=== PATIENT | female | born 1980 | race Caucasian/White ===

== ENCOUNTER 2021-01-18 09:41 | Outpatient (REF) | payer BC, SELFPAY ==
--- NOTE | ~2021-01-18 | XR_ITS ---
EXAMINATION: XR HAND, RIGHT CLINICAL INFORMATION: Pain right thumb COMPARISON: None TECHNIQUE: PA, lateral, and oblique views of the right hand. FINDINGS: There is no fracture or dislocation. The bony mineralization is normal. There is no focal joint narrowing or erosive change. No periostitis. The ulnar variance is neutral. XR/XR hand RT min 3V IMPRESSION: Normal right hand.
== END 2021-01-18 09:42 | disposition home or self-care (01) ==
LOC: HO.HMGCX 09:41
PROVIDERS: Visit Provider Hospitalist
DX: M79.644 Pain in right finger(s) (principal)
CPT/HCPCS: 73130

== ENCOUNTER → 2021-02-01 09:09 | Outpatient (BNVA) | payer BC, SELFPAY | PROVIDERS: PCP Internal Medicine; Visit Provider Orthopaedic Surgery ==

== ENCOUNTER 2021-02-17 14:58 | Outpatient (REF) | payer BC, SELFPAY ==
--- NOTE | ~2021-02-17 | MR_ITS ---
EXAMINATION: MR HAND WITHOUT AND WITH CONTRAST, RIGHT CLINICAL INFORMATION: Right hand, thumb pain for 1 year. COMPARISON: X-ray 01/18/2021 TECHNIQUE: MRI in a high-field magnet without and with contrast. 10 mL Gadavist. Large obftu-aj-ecic study extending from the distal radius/ulna through the tip of the fingers. FINDINGS: Skin marker positioned adjacent to the 1st distal phalanx. Large shwez-fm-avlo study limiting evaluation. There is a T2 bright focus along the dorsal aspect of the mid to distal 1st distal phalanx measuring 3 x 2 x 4 mm. (Transverse, AP, length). This may be located in the region of the proximal nailbed. This is bright on T2, low on T1, and demonstrates enhancement. Underlying marrow signal appears maintained. Differential considerations are broad, including benign and malignant lesions such as glomus tumor, soft tissue chondroma, hemangioma, squamous cell carcinoma, melanoma. Further evaluation is needed. Recommend surgical consultation. No evidence of fracture. No significant edema or significant arthropathy is identified. Visualized tendons are intact. No tenosynovitis. MR/MR hand RT wo/w con IMPRESSION: Lesion in the region of the 1st distal phalanx, evaluation limited in this large xepmu-du-famo study. This lesion is located dorsally at the level of the mid to distal 1st distal phalanx, measuring 3 x 2 x 4 mm. Lesion is bright on T2, low on T1, enhancing on the postcontrast sequences. Imaging findings are nonspecific. Differential considerations are broad and amongst other etiologies include benign or malignant etiologies such as glomus tumor, soft tissue chondroma, hemangioma, malignant etiology such as squamous cell carcinoma or melanoma not excluded. Further evaluation is needed. Recommend surgical consultation.
== END 2021-02-17 14:59 | disposition home or self-care (01) ==
LOC: HO.MRI 14:58
PROVIDERS: Visit Provider Orthopaedic Surgery
DX: M79.644 Pain in right finger(s) (principal); L60.8 Other nail disorders
CPT/HCPCS: 73220; A9585

== ENCOUNTER → 2021-03-13 11:34 | Outpatient (BNVA) | payer BC, SELFPAY | PROVIDERS: PCP Internal Medicine; Visit Provider Orthopaedic Surgery ==

== ENCOUNTER 2021-04-11 07:10 | Day surgery (SDC) | payer BC, SELFPAY ==
--- NOTE | 2021-04-07 08:42 | HO.ANESPROP2 ---
Documented by User: Nayeli Alicja 04/07/21 08:43 HPI - Anesthesia Eval Consult details Narrative: 41yo F for Right Removal of Nail Plate and Thumb Mass with Nail Bed Repair PMFSH Active Problems Active Problems: All Active Problems (Updated 03/13/21 @ 16:50 by Kassandra Rooney MD) Pain of right thumb (Acute) Nail deformity (Acute) Mass of soft tissue of right upper extremity (Acute) Past Medical History Medical History Anxiety and depression Gestational diabetes HPV in female Overweight Family History Family History Father Unknown family medical history Mother HTN (hypertension) Brother No problems noted. Sister No problems noted. Son No problems noted. Son No problems noted. Surgical History Surgical History History of esophagogastroduodenoscopy (EGD) [place] teeth extracted Social History Social History Alcohol intake: current Alcohol intake frequency: holidays/special occasions only Patient Tobacco Use Status: Never used Tobacco Second Hand Smoke Exposure: No Use of substances other than those prescribed or required for medical reasons: No Are you DNR?: No Advance Directives: No Advance Directives Information Provided: Yes Advance Directives on File: No Recently lost weight without trying: No Nutrition Risks: No Nutritional Risk Current occupational status: employed Current occupation: Early intervention/rt handed Meds Allergies Allergy/AdvReac Type Severity Reaction Status Date / Time sulfamethoxazole Allergy Unknown Rash Verified 04/03/21 13:58 [From Bactrim] trimethoprim [From Bactrim] Allergy Unknown Rash Verified 04/03/21 13:58 Home Medications Medication Instructions Recorded Confirmed Last Taken Type flu vac qs 2019(4 yr up)CD(PF) ml IM 10/25/20 01/18/21 Unknown History Exam Exam Date and Time: April 07, 2021 0842 Assessment and Plan Assessment Anesthesia Assessment: Chart Reviewed Documented by User: Maxim Andrade MD 04/11/21 07:59 PMFSH Past Medical History Medical History Anxiety and depression Gestational diabetes HPV in female Overweight Family History Family History Father Unknown family medical history Mother HTN (hypertension) Brother No problems noted. Sister No problems noted. Son No problems noted. Son No problems noted. Surgical History Surgical History History of esophagogastroduodenoscopy (EGD) [place] teeth extracted Social History Social History Alcohol intake: current Alcohol intake frequency: holidays/special occasions only Patient Tobacco Use Status: Never used Tobacco Second Hand Smoke Exposure: No Use of substances other than those prescribed or required for medical reasons: No Are you DNR?: No Advance Directives: No Advance Directives Information Provided: Yes Advance Directives on File: No Recently lost weight without trying: No Nutrition Risks: No Nutritional Risk Current occupational status: employed Current occupation: Early intervention/rt handed Meds Allergies Allergy/AdvReac Type Severity Reaction Status Date / Time sulfamethoxazole Allergy Unknown Rash Verified 04/03/21 13:58 [From Bactrim] trimethoprim [From Bactrim] Allergy Unknown Rash Verified 04/03/21 13:58 Home Medications Medication Instructions Recorded Confirmed Last Taken Type flu vac qs 2019(4 yr up)CD(PF) ml IM 10/25/20 01/18/21 Unknown History Exam Airway Mallampati Class: I TM Dist: >3cm Neck ROM: Full Loose/Missing/Broken Teeth: No Assessment and Plan Assessment Anesthesia Assessment: Anesthesia Plan Discussed and Chart Reviewed Final Anesthetic Review NPO: Yes ASA Class: I Final Preanesthetic Review: No Changes in Pt Med Stat, Meds/Allgs Chart Reviewed, Consent Obtained/Reviewed and Anes Risks/Benef Reviewed Patient Risk: Low Procedure Risk: Low Anesthetic Plan Anesthetic Plan: GA Disposition: Standard PACU
[2021-04-11] VITALS (7 sets, daily range): BP systolic 106–126; BP diastolic 57–72; PULSE 85–91; RESP 16–18; TEMP 36.1–36.3; O2SAT 96–100; BMI 37.8
[2021-04-11] MEDS: Lactated Ringers 1,000 ML 100 ML IVCONT (07:34)
[2021-04-11] MEDS: ceFAZolin Sodium/Dextrose,Iso 2 GM/50 ML PIGGYBACK IV (08:16)
[2021-04-11 08:29] LABS: UPreg QC Valid YES; Urine Pregnancy NEGATIVE (NEGATIVE)
--- NOTE | 2021-04-11 09:02 | P.BOP_ITS ---
Brief Operative Note Date of Service: 04/11/21 Surgeon: Kassandra Rooney MD Was an Freight Team Associate used for this Procedure?: No
--- NOTE | 2021-04-11 09:02 | MHC.SHP ---
Pre-Procedural Eval Section A Date of Service: 04/11/21 Section B Chief Complaint: soft tissue disorders Allergies: Allergies Allergy/AdvReac Type Severity Reaction Status Date / Time sulfamethoxazole Allergy Unknown Rash Verified 04/03/21 13:58 [From Bactrim] trimethoprim [From Bactrim] Allergy Unknown Rash Verified 04/03/21 13:58 Plan I have reviewed the history and physical and performed a pertinent physical examination on my patient. No changes have occurred unless specified.
--- NOTE | 2021-04-11 09:02 | PM.OP ---
Brief Operative Note Date of Service: 04/11/21 Surgeon: Kassandra Rooney MD Was an Livestock Laborer used for this Procedure?: No
--- NOTE | 2021-04-11 09:03 | W.PM.OPN ---
Operative Note Operative Note Date of Service: 04/11/21 Narrative: Operative Note Narrative: Preop diagnosis: right thumb nail bed soft tissue mass Postop diagnosis: Same Procedure: 1. Removal of right thumb nail plate 2. excisional biopsy of right thumb nail bed mass with repair of nail bed Surgeon: Kassandra Rooney MD Anesthesia: Mac plus regional block Findings: A light menendez soft tissue mass measuring approximately 4-5 mm in diameter was removed from beneath the proximal ulnar nail bed of the right thumb and sent for histopathology Implants: none Tourniquet time: 20 minutes EBL: 5.0 ml Specimen: right thumb nail bed mass sent for histopathology Drains: None Complications: None Disposition: Brought to the recovery room in stable condition Plan: Follow-up in 10-14 days for wound check, and to check pathology anticipate removal of sutures about nail plate at 3 weeks postop Indications: The patient is 41 years old with a painful mass in the nail bed of the right thumb, most consistent with a glomus tumor. . The risks and benefits of operative treatment, including but not limited to risk of damage to blood vessels, nerves, tendons, infection, recurrence, persistent pain or numbness, incomplete resolution of preoperative symptoms, or need for further surgery were discussed with the patient and they wished to proceed with surgery. Procedure: Once consent was obtained patient was brought back to the operating suite and placed in the operating table in a supine position. Perioperative antibiotics and anesthesia was administered by the anesthesia team. A tourniquet was applied to the proximal aspect of the Right upper extremity and the limb was prepped and draped in a standard surgical fashion. The limb was elevated exsanguinated with Esmarch bandage and the tourniquet inflated to 250 mm of mercury for a total tourniquet time of 20 minutes. a [employer] elevator was used to elevate the nail plate from the underlying nail bed of the right thumb. The nail plate was freed from the eponychial fold, removed and placed on the back table in some Betadine. The nail plate was then cleaned up and trimmed. The soft tissue mass was visualized beneath the sterile and some of the germinal matrix of the ulnar aspect of the right thumb nail bed. I made a longitudinal incision over the mass using a 15. Blade. I then dissected down to the mass which was just beneath the nail bed. It was a light menendez in color rather spherical and measured about 4-5 mm in diameter. I then excised the soft tissue mass And placed on the back table to be sent for histopathology. No other masses were appreciated. The wound was then irrigated with normal saline and the nail bed was then repaired using some 6 0 absorbable gut suture. The nail plate was then position beneath the eponychial fold and secured there using some 5 0 Prolenesuture. At this point the tourniquet was deflated and hemostasis obtained with a brief period of local pressure . The wound was copiously irrigated with normal saline. A digital block was performed using some 0.25% plain Marcaine for postop pain control and a sterile dressing was applied. The patient appears to have tolerated the procedure well and with no complications. All digits were well vascularized conclusion of the case.
== END 2021-04-11 11:30 | disposition home or self-care (01) ==
PROVIDERS: Nurse Practitioner; PCP Internal Medicine; Visit Provider Orthopaedic Surgery
PROC: (CPT 26115; principal; 2021-04-11 08:30)
DX: M79.89 Other specified soft tissue disorders (principal); D21.11 Benign neoplasm of connective and other soft tissue of right upper limb, including shoulder
CPT/HCPCS: 26115; 11760; 81025; 88307; 88313; 88341; 88342; J0690; J1100; J2250; J2370; J2405; J3010

== ENCOUNTER → 2021-04-24 08:32 | Outpatient (BNVA) | payer BC, SELFPAY | PROVIDERS: Visit Provider Physician Assistant ==

== ENCOUNTER → 2021-04-27 14:45 | Outpatient (BNVA) | payer BC, SELFPAY | PROVIDERS: PCP Internal Medicine; Visit Provider Physician Assistant ==

== ENCOUNTER → 2021-05-12 13:20 | Outpatient (BNVA) | payer BC, SELFPAY | PROVIDERS: PCP Internal Medicine; Visit Provider Physician Assistant ==

== ENCOUNTER 2022-06-12 08:53 | Outpatient (REF) | payer BC, SELFPAY ==
[2022-06-12 11:23] LABS: MANUAL DIFF FLAG NO
[2022-06-12 11:38] LABS: Basophils Percent Auto 0.5 % (0-2); Eosinophils Absolute Auto 0.2 X10*3/uL (0.0-0.4); Eosinophils Percent Auto 1.8 % (0-4); Hematocrit 39.3 % (37.0-47.0); Hemoglobin 12.9 g/dl (12.0-16.0); Imm Gran Abs Auto 0.03 X10*3/uL (0.00-0.03); Imm Gran Pct Auto 0.4 % (0.0-0.4); Lymphocytes Absolute Auto 1.3 X10*3/uL (1.2-4.9); Lymphocytes Percent Auto 16.3 % (20-40); Mean Corpuscular HGB Conc 32.8 g/dl (31.0-35.0); Mean Corpuscular Hemoglobin 27.3 pg (27.0-33.0); Mean Corpuscular Volume 83.1 fL (80.0-98.0); Mean Platelet Volume 11.9 fL (9.4-12.3); Monocytes Absolute Auto 0.6 X10*3/uL (0.1-1.2); Monocytes Percent Auto 7.6 % (2-11); Neutrophils Percent Auto 73.4 % (45-73); Platelet Count 322 X10*3/uL (160-400); Red Blood Count 4.73 X10*6/uL (4.20-5.50); Red Cell Distribution Width 15.4 % (11.0-16.0); White Blood Count 8.2 X10*3/uL (4.8-10.8)
[2022-06-12 12:01] LABS: Alanine Aminotransferase 15 U/L (0-31); Albumin Level 4.1 g/dL (3.5-5.0); Alkaline Phosphatase 88 U/L (39-117); Anion Gap 15 (12-20); Aspartate Amino Transferase 14 U/L (5-31); Bilirubin Total 0.4 mg/dL (0.0-1.0); Blood Urea Nitrogen 12 mg/dL (9-16); Carbon Dioxide 25 mmol/L (22-29); Chloride 102 mmol/L (96-108); Cholesterol 193 mg/dL; Estimated Glomerular Filt Rate > 60; Glucose Fasting 104 mg/dL (60-99); HDL Cholesterol 55 mg/dL; LDL Cholesterol Calculated 126 mg/dl; Potassium 4.8 mmol/L (3.3-5.1); Sodium 137 mmol/L (135-145); Total Protein 7.4 g/dL (6.5-8.0); Triglycerides 61 mg/dL
[2022-06-12 12:22] LABS: TSH reflex Free T4 1.56 uIU/mL (0.32-4.0)
== END 2022-06-12 08:54 | disposition home or self-care (01) ==
LOC: HO.HMGCLDS 08:53
PROVIDERS: PCP Internal Medicine; Visit Provider Internal Medicine
DX: Z00.00 Encounter for general adult medical examination without abnormal findings (principal); F32.9 Major depressive disorder, single episode, unspecified; F41.9 Anxiety disorder, unspecified
CPT/HCPCS: 36415; 80053; 80061; 84443; 85025

== ENCOUNTER 2023-01-30 16:45 | Outpatient (REF) | payer BC, SELFPAY ==
[2023-01-30 17:34] LABS: Influenza A PCR NEGATIVE (Negative); Influenza B PCR NEGATIVE (Negative); Resp Syncy Virus RNA Qual PCR NEGATIVE (Negative); SARS COV2 PCR INHOUSE NEGATIVE (Negative)
== END 2023-01-30 16:46 | disposition home or self-care (01) ==
LOC: HO.LNP 16:45
PROVIDERS: Visit Provider Internal Medicine
DX: Z20.822 Contact with and (suspected) exposure to COVID-19 (principal); R43.9 Unspecified disturbances of smell and taste
CPT/HCPCS: 0241U

== ENCOUNTER 2023-05-23 12:34 | Outpatient (AMB) | payer BC, SELFPAY ==
[2023-05-23 12:44] VITALS: BP 106/80; PULSE 85; O2SAT 98; BMI 41.9
--- NOTE | 2023-05-23 12:44 | MHC.PC.OV ---
Vital Signs 05/23/23 12:44 Height 5 ft 1 in Weight 222 lb BMI 41.9 BP 106/80 Blood Pressure Location Lt brachial Position Sitting Pulse 85 Pulse Source Pulse Oximeter Pulse Oximetry (%) 98 Oxygen Delivery Method Room Air Intake Visit Reasons: Reoccurring sinus infections, discuss Sleep Apnea Intake Note: Pt is here today for a follow up visit. Pt states that she would like to have sleep study ordered due to sleeping issues. Allergies sulfamethoxazole [From Bactrim] Allergy (Unknown, Verified 05/23/23 12:47) Rash trimethoprim [From Bactrim] Allergy (Unknown, Verified 05/23/23 12:47) Rash Medication List - Last Reconciled 05/23/23 by Denise Cartagena MD escitalopram oxalate 20 mg PO DAILY flu vac qs 2019(4 yr up)CD(PF) mL IM Tobacco use date assessed: 05/23/23 Dental Screening Dental Screen Date: 05/23/23 Did you have a dental visit in the last 12 months?: Yes Did you have a dental problem in the last 6 months where you did not have access to dental care?: No Was dental information given to patient?: Patient has dentist HPI Reoccurring sinus infections, discuss Sleep Apnea HPI Details Pt c/o witnessed apnea and loud snoring, daytime sleepiness getting worse for the last few months. Pt c/o frequent sinusitis and upper respiratory infections for the last few years. Patient used to have seasonal allergy and had immunotherapy about 10 years ago with good relief. Patient denies allergy symptoms. [facility] Medical History Anxiety and depression Gestational diabetes HPV in female Overweight Surgical History History of esophagogastroduodenoscopy (EGD) [place] teeth extracted Family History Father Unknown family medical history Mother HTN (hypertension) Brother No problems noted. Sister No problems noted. Son No problems noted. Son No problems noted. 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 How often do you have a drink containing alcohol?: Monthly or less 2. How many drinks containing alcohol do you have on a typical day when you are drinking?: 1 or 2 3. How often do you have six or more drinks on one occasion?: Never Total Score: 1 STEVE-7 AMB Questionnaire STEVE-7 Date STEVE - 7 assessed: 05/18/22 Source: Developed by Drs. Angelo Hoffmann, Marti Samaniego, Danilo Pierre and colleagues, with an educational inocencio from [email or web address]. Review of Systems Const All systems reviewed & are unremarkable except as noted in HPI and below Reports no additional complaints Eyes Reports no additional complaints ENT Reports no additional complaints Card Reports no additional complaints Resp Reports no additional complaints GI Reports no additional complaints Reports no additional complaints Physical exam (Primary Care) Vital Signs: Last Vital Signs Pulse 85 05/23/23 12:44 BP 106/80 05/23/23 12:44 Pulse Ox 98 05/23/23 12:44 Oxygen Delivery Method Room Air 05/23/23 12:44 BMI result Body Mass Index 41.9 Tobacco/Smoking Status: Tobacco use Status Tobacco use date assessed 05/23/23 05/23/23 12:49 Patient Tobacco Use Status Never used Tobacco 05/23/23 12:49 e-Cigarette/Vaping Use Never Used 05/23/23 12:49 Thrive Assessment: Date of Thrive Assessment Date Thrive assessed 05/18/22 05/23/23 12:49 Const General: no acute distress HENMT Head: Yes normal to inspection Ears: TM's normal bilaterally General nose exam: Normal external nose present and Normal nasal mucous membranes and turbinates present Mouth: Normal oral and palatal mucosa present Throat: Yes posterior oropharynx normal Neck Neck: Yes no lymphadenopathy and Yes supple Resp Effort & Inspection: normal respiratory effort Auscultation: clear to auscultation bilaterally Cardio Rhythm: regular rhythm Heart sounds: S1 normal heart sound present and S2 normal heart sound present Assessment and Plan Assessment & Plan (1) Sleep apnea: Code(s): G47.30 - Sleep apnea, unspecified Plan: Obtain sleep studies (2) Annual physical exam: Code(s): Z00.00 - Encounter for general adult medical examination without abnormal findings (3) Recurrent sinus infections: Code(s): J32.9 - Chronic sinusitis, unspecified Plan: Referred to ENT Orders: Orders RT home sleep study Today G47.30 - Sleep apnea, unspecified Comprehensive [place]. Panel Fast Today G47.30 - Sleep apnea, unspecified, Z00.00 - Encounter for general adult medical examination without abnormal findings Lipid Panel Today G47.30 - Sleep apnea, unspecified, Z00.00 - Encounter for general adult medical examination without abnormal findings TSH reflex Free T4 Today G47.30 - Sleep apnea, unspecified, Z00.00 - Encounter for general adult medical examination without abnormal findings Complete Blood Count Auto Diff Today G47.30 - Sleep apnea, unspecified, Z00.00 - Encounter for general adult medical examination without abnormal findings Referrals Ear/Nose/Throat Referral G47.30 - Sleep apnea, unspecified, J32.9 - Chronic sinusitis, unspecified Coding Level of Care Code Est Pt Level 3 (81922) Diagnoses Sleep apnea G47.30 Annual physical exam Z00.00 Recurrent sinus infections J32.9
== END 2023-05-23 13:14 | disposition home or self-care (01) ==
LOC: HO.HMGC 12:34
PROVIDERS: PCP Internal Medicine; Visit Provider Internal Medicine
DX: G47.30 Sleep apnea, unspecified (principal); Z00.00 Encounter for general adult medical examination without abnormal findings; J32.9 Chronic sinusitis, unspecified
CPT/HCPCS: 99213

== ENCOUNTER 2023-06-13 08:23 | Outpatient (AMB) | payer BC, SELFPAY ==
--- NOTE | 2023-06-13 08:25 | MHC.PC.OV ---
Vital Signs 06/13/23 08:26 Height 5 ft 1 in Weight 222 lb BMI 41.9 BP 110/78 Blood Pressure Location Rt brachial Position Sitting Pulse 83 Pulse Source Pulse Oximeter Pulse Oximetry (%) 97 Oxygen Delivery Method Room Air Intake Visit Reasons: PE Intake Note: Patient is over due for Pap Smear and would like to have one done today. Allergies sulfamethoxazole [From Bactrim] Allergy (Unknown, Verified 06/13/23 08:27) Rash trimethoprim [From Bactrim] Allergy (Unknown, Verified 06/13/23 08:27) Rash Medication List - Last Reconciled 06/13/23 by Denise Cartagena MD escitalopram oxalate 20 mg PO DAILY flu vac qs 2019(4 yr up)CD(PF) mL IM Tobacco use date assessed: 05/23/23 Dental Screening Dental Screen Date: 06/13/23 Did you have a dental visit in the last 12 months?: Yes Did you have a dental problem in the last 6 months where you did not have access to dental care?: No Was dental information given to patient?: Patient has dentist HPI PE HPI Details Pt presents for PE. Patient is waiting to have her sleep studies. [facility] Medical History (Updated 06/13/23 @ 09:03 by Denise Cartagena MD) HPV in female Overweight Gestational diabetes Anxiety and depression Surgical History History of esophagogastroduodenoscopy (EGD) [place] teeth extracted Family History Father Unknown family medical history Mother HTN (hypertension) Brother No problems noted. Sister No problems noted. Son No problems noted. Son No problems noted. 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 Angelo Hoffmann, Marti Samaniego, Danilo Pierre and colleagues, with an educational inocencio from [employer]. Review of Systems Const All systems reviewed & are unremarkable except as noted in HPI and below Reports no additional complaints Eyes Reports no additional complaints ENT Reports no additional complaints Card Reports no additional complaints Resp Reports no additional complaints GI Reports no additional complaints Reports no additional complaints Physical exam (Primary Care) Vital Signs: Last Vital Signs Pulse 83 06/13/23 08:26 BP 110/78 06/13/23 08:26 Pulse Ox 97 06/13/23 08:26 Oxygen Delivery Method Room Air 06/13/23 08:26 BMI result Body Mass Index 41.9 Tobacco/Smoking Status: Tobacco use Status Tobacco use date assessed 05/23/23 06/13/23 08:30 Patient Tobacco Use Status Never used Tobacco 06/13/23 08:30 e-Cigarette/Vaping Use Never Used 06/13/23 08:30 Thrive Assessment: Date of Thrive Assessment Date Thrive assessed 05/18/22 06/13/23 08:30 Const General: no acute distress HENMT Head: Yes normal to inspection Ears: hearing grossly normal bilaterally General nose exam: Normal external nose present Face and sinus: Yes normal facial exam Throat: Yes posterior oropharynx normal Eyes General: appearance normal, both eyes and all related structures Neck Neck: Yes no lymphadenopathy and Yes supple Chest Breast/axilla inspection: normal inspection of the breasts Breast/axilla palpation: normal palpation of the breasts and normal palpation of the axillae Resp Effort & Inspection: normal respiratory effort Auscultation: clear to auscultation bilaterally Cardio Rhythm: regular rhythm Heart sounds: S1 normal heart sound present and S2 normal heart sound present GI Inspection: Yes normal to inspection Palpation (GI): Soft to palpation Percussion: Yes normal to percussion Auscultation: normal bowel sounds Speculum Exam - Vagina: normal appearance of the vagina Speculum Exam - Cervix: normal appearance of the cervix Bimanual exam- vagina & uterus: normal bimanual exam Assessment and Plan Assessment & Plan (1) Annual physical exam: Code(s): Z00.00 - Encounter for general adult medical examination without abnormal findings Plan: Well-balanced diet and regular physical activity, weight loss discussed with the patient. Pap smear was done today. She will have a fasting blood work today (2) Sleep apnea: Code(s): G47.30 - Sleep apnea, unspecified Plan: Patient is waiting for sleep studies (3) Overweight: Code(s): E66.3 - Overweight Plan: Weight loss discussed with the patient Orders: Orders Pap Smear Today Z00.00 - Encounter for general adult medical examination without abnormal findings Coding Level of Care Code Est Pt Prev Care 40-64y(47922) Diagnoses Annual physical exam Z00.00 Sleep apnea G47.30 Overweight E66.3
[2023-06-13 08:26] VITALS: BP 110/78; PULSE 83; O2SAT 97; BMI 41.9
== END 2023-06-13 09:05 | disposition home or self-care (01) ==
PROVIDERS: PCP Internal Medicine; Visit Provider Internal Medicine
DX: Z00.00 Encounter for general adult medical examination without abnormal findings (principal); G47.30 Sleep apnea, unspecified; E66.3 Overweight
CPT/HCPCS: 99396

== ENCOUNTER 2023-06-13 08:58 | Outpatient (REF) | payer BC, SELFPAY ==
[2023-06-13 11:13] LABS: MANUAL DIFF FLAG NO
[2023-06-13 11:37] LABS: Basophils Percent Auto 0.4 % (0-2); Eosinophils Absolute Auto 0.3 X10*3/uL (0.0-0.4); Eosinophils Percent Auto 3.7 % (0-4); Hematocrit 38.7 % (37.0-47.0); Hemoglobin 12.6 g/dl (12.0-16.0); Imm Gran Abs Auto 0.02 X10*3/uL (0.00-0.03); Imm Gran Pct Auto 0.3 % (0.0-0.4); Lymphocytes Absolute Auto 1.5 X10*3/uL (1.2-4.9); Lymphocytes Percent Auto 22.8 % (20-40); Mean Corpuscular HGB Conc 32.6 g/dl (31.0-35.0); Mean Corpuscular Hemoglobin 26.6 pg (27.0-33.0); Mean Corpuscular Volume 81.8 fL (80.0-98.0); Monocytes Absolute Auto 0.5 X10*3/uL (0.1-1.2); Monocytes Percent Auto 7.9 % (2-11); Neutrophils Absolute Auto 4.4 x10*3/uL (2.0-8.3); Neutrophils Percent Auto 64.9 % (45-73); Platelet Count 328 X10*3/uL (160-400); Red Blood Count 4.73 X10*6/uL (4.20-5.50); White Blood Count 6.8 X10*3/uL (4.8-10.8)
[2023-06-13 11:51] LABS: Alanine Aminotransferase 13 U/L (0-31); Albumin Level 3.9 g/dL (3.5-5.0); Alkaline Phosphatase 86 U/L (39-117); Anion Gap 10 (12-20); Aspartate Amino Transferase 14 U/L (5-31); Bilirubin Total 0.3 mg/dL (0.0-1.0); Blood Urea Nitrogen 10 mg/dL (9-16); Carbon Dioxide 26 mmol/L (22-29); Chloride 106 mmol/L (96-108); Cholesterol 195 mg/dL (<200); Estimated Glomerular Filt Rate > 60; Glucose Fasting 102 mg/dL (60-99); HDL Cholesterol 51 mg/dL (>40); LDL Cholesterol Calculated 127 mg/dL (<100); Sodium 138 mmol/L (135-145); Total Protein 7.4 g/dL (6.5-8.0); Triglycerides 87 mg/dL (<150)
[2023-06-13 12:06] LABS: TSH reflex Free T4 1.44 uIU/mL (0.32-4.0)
== END 2023-06-13 08:59 | disposition home or self-care (01) ==
LOC: HO.HMGCLDS 08:58
PROVIDERS: PCP Internal Medicine; Visit Provider Internal Medicine
DX: Z00.00 Encounter for general adult medical examination without abnormal findings (principal); G47.30 Sleep apnea, unspecified
CPT/HCPCS: 36415; 80053; 80061; 84443; 85025

== ENCOUNTER 2023-06-13 09:08 | Outpatient (REF) | payer BC, SELFPAY ==
[2023-06-18 06:54] LABS: HPV mRNA E6/E7 Not Detected (Not Detected)
== END 2023-06-13 09:09 | disposition home or self-care (01) ==
LOC: HO.LNP 09:08
PROVIDERS: Visit Provider Internal Medicine
DX: Z00.00 Encounter for general adult medical examination without abnormal findings (principal); G47.30 Sleep apnea, unspecified
CPT/HCPCS: 87624; 88142

== ENCOUNTER → 2023-07-04 12:55 | Outpatient (REF) | payer BC, SELFPAY | LOC: HO.SL 12:55 | PROVIDERS: PCP Internal Medicine; Visit Provider Internal Medicine | DX: G47.33 Obstructive sleep apnea (adult) (pediatric) (principal) | CPT/HCPCS: 95806 ==

== ENCOUNTER → 2023-07-04 13:07 | Outpatient (BNV) | payer BC, SELFPAY | PROVIDERS: PCP Internal Medicine; Visit Provider Internal Medicine | DX: G47.33 Obstructive sleep apnea (adult) (pediatric) (principal) | CPT/HCPCS: 95806 ==

== ENCOUNTER 2023-08-21 08:54 | Outpatient (AMB) | payer BC, SELFPAY ==
--- NOTE | 2023-08-21 09:14 | AM.OFFWIN_ITS ---
Intake Vital Signs 08/21/23 09:15 Height 5 ft 1 in Weight 100.698 kg BMI 41.9 BP 120/72 Blood Pressure Location Rt brachial Position Sitting Pulse 93 Pulse Source Pulse Oximeter Temp 97.1 F Temp Source Temporal Artery Scan Pulse Oximetry (%) 98 Oxygen Delivery Method Room Air Intake Visit Reasons: EP cough congestion over a week [phone] Intake Note: Pt is here c/o cough and chest congestion for over one week. Patient Tobacco Use Status: Never used Tobacco Allergies sulfamethoxazole [From Bactrim] Allergy (Unknown, Verified 08/21/23 09:15) Rash trimethoprim [From Bactrim] Allergy (Unknown, Verified 08/21/23 09:15) Rash Do you need a note to return to daycare/school/sports/work: Yes HPI HPI Comments History of Present Illness Details [id number] this is a 43-year-old female without significant medical history presenting to the clinic for sick visit complaining of fatigue, malaise, myalgias, congestion, cough times a week, not improving. Denies sick contacts. Denies fevers, chills, chest pain, shortness of breath, headache, vision changes, dizziness, we akness. Physical examination benign concerns for possible bacterial bronchitis due to length of symptoms versus viral illness versus flu versus COVID versus RSV. Unlikely pulmonary embolism, pneumonia, acute respiratory distress or atypical presentation of ACS. Plan at this time will discharge home with doxycycline p.o. b.i.d. , prednisone and albuterol. Educated patient on diagnosis and treatment plan, answered all question, patient verbalizes understanding. At this time patient will be discharged home, advised to return with new or worsening symptoms. Educated on worrisome signs and symptoms and when to return. At this time I feel comfortable discharge home. [facility] Medical History HPV in female Overweight Gestational diabetes Anxiety and depression Surgical History History of esophagogastroduodenoscopy (EGD) [place] teeth extracted Family History Father Unknown family medical history Mother HTN (hypertension) Brother No problems noted. Sister No problems noted. Son No problems noted. Son No problems noted. 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,10) Housing: House Alcohol intake: current Alcohol intake frequency: holidays/special occasions only Patient Tobacco Use Status: Never used Tobacco e-Cigarette/Vaping Use: Never Used Second Hand Smoke Exposure: No Current occupational status: employed Current occupation: Early intervention/rt handed Cognitive needs: No Hearing needs: No Vision needs: No Review of Systems Const Details: Constitutional : No Weight loss, No Fever, No Chills, + Fatigue, + Malaise ENT/Mouth : No sore throat, No Rhinorrhea Eyes: No Eye Pain, No Swelling, No Redness Cardiovascular : No Chest Pain, No SOB, No Dyspnea on Exertion, No Orthopnea, No Edema, No Palpitations Respiratory : + Cough, No Sputum, No Wheezing Gastrointestinal : No Nausea, No Vomiting, No Diarrhea, No Constipation, No abdominal Pain, No Hematochezia, No Melena Genitourinary : No Dysuria, No Urinary Frequency, No Hematuria, Musculoskeletal : No joint pain, No Myalgias, No Joint Swelling Skin : No Skin Lesions, No rash Neuro : No Weakness, No Numbness, No Dizziness, No Headache Psych : No Anxiety/Panic, No Depression All other systems reviewed and are negative All systems reviewed & are unremarkable except as noted in HPI and below Physical Exam Vital Signs: Last Vital Signs Temp 97.1 F 08/21/23 09:15 Pulse 93 08/21/23 09:15 BP 120/72 08/21/23 09:15 Pulse Ox 98 08/21/23 09:15 Oxygen Delivery Method Room Air 08/21/23 09:15 BMI result Body Mass Index 41.9 vss 98% just after ambulation- stable well appearing Appearance: Alert.? Oriented X3.? No acute distress.? Head: Normocephalic, atraumatic, no step-offs or deformities Eyes: Pupils equal, round and reactive to light.? ENT: Pharynx normal.? Neck: Normal inspection.? Neck supple.? CVS: Normal heart rate and rhythm.? Pulses normal.? Respiratory: No respiratory distress.? Breath sounds normal.? Abdomen: Soft and nontender.? Skin: Skin warm and dry.? Normal skin color.? Normal skin turgor.? Extremities: No lower extremity edema.? No calf ttp. 5/5 strength to bilateral upper and lower extremities Neuro: Oriented X 3.? No motor deficit.? No sensory deficit. CN 2-12 intact Assessment & Plan Assessment & Plan (1) Bronchitis: Code(s): J40 - Bronchitis, not specified as acute or chronic Plan Take your medications as prescribed. If you were prescribed antibiotics today, it is important that you take your medication to their entirety, do not skip any doses, do not finish them early. Follow-up with your primary care provider this week. Return to the emergency department with new or worsening symptoms. Such as fevers, chills, chest pain, shortness of breath, nausea, vomiting, dizziness, headache, vision changes, lethargy In case of emergency call 911 Medications: New doxycycline hyclate 100 mg PO BID 7 days 14 caps 0RF prednisone 40 mg (2 x 20 mg) PO DAILY 5 days 10 tabs 0RF benzonatate 100 mg PO BID PRN 14 caps 0RF cough albuterol sulfate 90 mcg/actuation 2 puffs inhalation Q6H PRN 6.7 grams 0RF shortness of breath or wheezing Coding Level of Care Code Est Pt Level 3 (01465) Diagnoses Bronchitis J40
[2023-08-21 09:15] VITALS: BP 120/72; PULSE 93; TEMP 36.2; O2SAT 98; BMI 41.9
== END 2023-08-21 10:20 | disposition home or self-care (01) ==
PROVIDERS: PCP Internal Medicine; Visit Provider Physician Assistant
DX: J40 Bronchitis, not specified as acute or chronic (principal)
CPT/HCPCS: 99213

== ENCOUNTER 2023-08-27 14:25 | Outpatient (AMB) | payer BC, SELFPAY ==
[2023-08-27 15:00] VITALS: BP 118/70; PULSE 105; TEMP 36.6; O2SAT 97; BMI 41.9
--- NOTE | 2023-08-27 15:00 | MHC.OFFWIV ---
Intake Vital Signs 08/27/23 15:00 Height 5 ft 1 in Weight 222 lb BMI 41.9 BP 118/70 Blood Pressure Location Rt brachial Position Sitting Pulse 105 H Pulse Source Pulse Oximeter Temp 97.9 F Temp Source Temporal Artery Scan Pulse Oximetry (%) 97 Oxygen Delivery Method Room Air Intake Visit Reasons: EP cough congestion wheezing [phone] Intake Note: pt is here for cough, congestion, wheezing, completed prednisone treatment Patient Tobacco Use Status: Never used Tobacco Allergies sulfamethoxazole [From Bactrim] Allergy (Unknown, Verified 08/30/23 13:39) Rash trimethoprim [From Bactrim] Allergy (Unknown, Verified 08/30/23 13:39) Rash Medication List - Last Reconciled 08/30/23 by Bruno Boss MD albuterol sulfate 2.5 mg (3 mL) inhalation Q6H albuterol sulfate 90 mcg/actuation 2 puffs inhalation Q6H PRN codeine-guaifenesin 10-100 mg/5 mL 5 mL PO Q6H PRN escitalopram oxalate 20 mg PO DAILY Do you need a note to return to daycare/school/sports/work: Yes HPI EP cough congestion wheezing [phone] HPI Details 43 yr old female presents to the office for a sick visit. She reports her sx of wheezing and non productive cough is continuing. Completed abx and short course of prednisone. Using the inhalers and cough pearls PFSH Medical History HPV in female Overweight Gestational diabetes Anxiety and depression Surgical History History of esophagogastroduodenoscopy (EGD) [place] teeth extracted Family History Father Unknown family medical history Mother HTN (hypertension) Brother No problems noted. Sister No problems noted. Son No problems noted. Son No problems noted. 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,10) Housing: House Alcohol intake: current Alcohol intake frequency: holidays/special occasions only Patient Tobacco Use Status: Never used Tobacco e-Cigarette/Vaping Use: Never Used Second Hand Smoke Exposure: No Current occupational status: employed Current occupation: Early intervention/rt handed Cognitive needs: No Hearing needs: No Vision needs: No Physical Exam Vital Signs: Last Vital Signs Temp 97.9 F 08/27/23 15:00 Pulse 105 H 08/27/23 15:00 BP 118/70 08/27/23 15:00 Pulse Ox 97 08/27/23 15:00 Oxygen Delivery Method Room Air 08/27/23 15:00 BMI result Body Mass Index 41.9 Const General: cooperative and healthy appearing Nutritional Appearance: well nourished Orientation/consciousness: patient oriented x3 Limitations: no limitations HEENT Head: Yes normal to inspection Eyes General: appearance normal, both eyes and all related structures Neck Neck: Yes normal visual inspection Chest Chest palpation & inspection: normal palpation of entire chest wall Resp Effort & Inspection: normal respiratory effort Neuro General: patient oriented x3 Assessment & Plan Assessment & Plan (1) Bronchitis: Code(s): J40 - Bronchitis, not specified as acute or chronic Plan NO further antibiotics or prednisone indicated. patient requested albuterol for her nebulizer and cough medicine with maddie. Prescriptions called in., Medications: New albuterol sulfate 2.5 mg (3 mL) inhalation Q6H 75 mL 0RF codeine-guaifenesin 10-100 mg/5 mL 5 mL PO Q6H PRN 120 mL 0RF allergy symptoms Coding Level of Care Code Est Pt Level 3 (01826) Diagnoses Bronchitis J40
== END 2023-08-27 15:49 | disposition home or self-care (01) ==
PROVIDERS: PCP Internal Medicine; Visit Provider Internal Medicine
DX: J40 Bronchitis, not specified as acute or chronic (principal)
CPT/HCPCS: 99213

== ENCOUNTER 2023-09-04 22:03 | Emergency (ER) | payer BC, SELFPAY ==
--- NOTE | ~2023-09-04 | XR_ITS ---
EXAMINATION: XR CHEST CLINICAL INFORMATION: Cough, shortness of breath COMPARISON: None available. TECHNIQUE: 2 views of the chest were obtained. FINDINGS: The lungs are clear with no focal consolidation. No evidence of pneumothorax, pulmonary edema, or pleural effusions. The cardiomediastinal silhouette is unremarkable. No acute osseous findings. XR/XR chest 2V IMPRESSION: No acute cardiopulmonary findings.
[2023-09-04 22:30] VITALS: BP 126/60; PULSE 88; RESP 18; TEMP 36.4; O2SAT 98; BMI 37.8
[2023-09-04 23:09] LABS: MANUAL DIFF FLAG NO
[2023-09-04 23:10] LABS: Basophils Percent Auto 0.4 % (0-2); Eosinophils Absolute Auto 0.2 X10*3/uL (0.0-0.4); Eosinophils Percent Auto 1.6 % (0-4); Hematocrit 38.8 % (37.0-47.0); Hemoglobin 12.6 g/dl (12.0-16.0); Imm Gran Abs Auto 0.04 X10*3/uL (0.00-0.03); Imm Gran Pct Auto 0.4 % (0.0-0.4); Lymphocytes Absolute Auto 1.7 X10*3/uL (1.2-4.9); Lymphocytes Percent Auto 15.4 % (20-40); Mean Corpuscular HGB Conc 32.5 g/dl (31.0-35.0); Mean Corpuscular Hemoglobin 26.8 pg (27.0-33.0); Mean Corpuscular Volume 82.4 fL (80.0-98.0); Mean Platelet Volume 10.4 fL (9.4-12.3); Neutrophils Absolute Auto 8.3 x10*3/uL (2.0-8.3); Neutrophils Percent Auto 73.2 % (45-73); Platelet Count 368 X10*3/uL (160-400); Red Blood Count 4.71 X10*6/uL (4.20-5.50); Red Cell Distribution Width 15.4 % (11.0-16.0); White Blood Count 11.3 X10*3/uL (4.8-10.8)
[2023-09-04 23:28] LABS: Alanine Aminotransferase 29 U/L (0-31); Albumin Level 4.2 g/dL (3.5-5.0); Alkaline Phosphatase 82 U/L (39-117); Anion Gap 12 (12-20); Aspartate Amino Transferase 20 U/L (5-31); Bilirubin Total 0.3 mg/dL (0.0-1.0); Blood Urea Nitrogen 12 mg/dL (9-16); Calcium 9.6 mg/dL (8.4-10.2); Carbon Dioxide 29 mmol/L (22-29); Chloride 104 mmol/L (96-108); Creatinine Clr Calc Pharmacy 103.7; Estimated Glomerular Filt Rate > 60; Glucose Random 107 mg/dL (60-115); Potassium 4.4 mmol/L (3.3-5.1); Sodium 141 mmol/L (135-145); Total Protein 7.7 g/dL (6.5-8.0)
[2023-09-04 23:45] LABS: Influenza A PCR NEGATIVE (Negative); Influenza B PCR NEGATIVE (Negative); Resp Syncy Virus RNA Qual PCR NEGATIVE (Negative); SARS COV2 PCR INHOUSE NEGATIVE (Negative)
--- NOTE | 2023-09-05 03:24 | PC.NURSE ---
pt a&ox4, respirations even and unlabored. pt reporting cough for 4 weeks, pt reports being seen by PCP and given medications that she finished a full course of and reports symptoms have not gone away. pt reports painful cough that radiates into chest and throat. pt reports episodes of nausea with dry heaving or spit. pt reports she overall does not feel well . pt reports having anxiety attack prior to coming to the ED, called EMS and declines ride. pt reports during anxiety attack she felt as if she could not catch her breath. pt denies SOB at this time. pt lung sounds clear bilaterally.
[2023-09-05 03:26] VITALS: BP 120/55; PULSE 88; TEMP 36.5; O2SAT 95
[2023-09-05 03:30] VITALS: O2SAT 95
--- NOTE | 2023-09-05 04:41 | ED_ITS ---
HPI - URI/Sore Throat General Chief Complaint: Upper Respiratory Symptoms Stated Complaint: Sob, nausea, dizzy Time Seen by Provider: 09/05/23 04:18 Source: patient and family () Mode of arrival: ambulatory History of Present Illness HPI Narrative: 43-year-old female who presents with concerns that she is having a panic attack after having persistent symptoms of shortness of breath then began experiencing dizziness after using a nebulized treatment. Patient was evaluated by 911 but at that time she had declined transport and then discussed with her and presents for feeling that she has had minimal improvement after being treated with antibiotics/steroids/inhaler for bronchitis. Patient states that she has persisted to have fatigue and not feeling well. Related Data Previous Rx's Medication Instructions Recorded escitalopram oxalate 20 mg tablet 20 mg PO DAILY #90 tabs 07/23/23 albuterol sulfate 90 mcg/actuation 2 puff inhalation Q6H PRN 08/21/23 aerosol inhaler shortness of breath or wheezing #6.7 grams albuterol sulfate 2.5 mg/3 mL 2.5 mg (3 mL) inhalation Q6H #75 mL 08/27/23 (0.083 %) solution for nebulization codeine 10 mg-guaifenesin 100 mg/5 5 ml PO Q6H PRN allergy symptoms 08/27/23 mL oral liquid #120 mL Allergies Allergy/AdvReac Type Severity Reaction Status Date / Time sulfamethoxazole Allergy Unknown Rash Verified 09/04/23 22:30 [From Bactrim] trimethoprim [From Bactrim] Allergy Unknown Rash Verified 08/30/23 13:39 Review of Systems 2 Review of Systems: Pertinent positives and negatives as stated in HPI PMFSH Past Medical History Source: nursing notes reviewed Medical History HPV in female Overweight Gestational diabetes Anxiety and depression Surgical History History of esophagogastroduodenoscopy (EGD) [place] teeth extracted Family History Family History Father Unknown family medical history Mother HTN (hypertension) Brother No problems noted. Sister No problems noted. Son No problems noted. Son No problems noted. 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,10) Housing: House Alcohol intake: current Alcohol intake frequency: holidays/special occasions only Patient Tobacco Use Status: Never used Tobacco Smoked in Last 30 Days: No e-Cigarette/Vaping Use: Never Used Second Hand Smoke Exposure: No Use of substances other than those prescribed or required for medical reasons: No Advance Directives: No Advance Directives Information Provided: No Patient : No Current occupational status: employed Current occupation: Early intervention/rt handed Cognitive needs: No Hearing needs: No Vision needs: No Physical Exam 2 Vital Signs: Vital Signs: Last Vital Signs Temp 97.7 F 09/05/23 03:26 Pulse 80 09/05/23 05:18 Resp 17 09/05/23 05:18 BP 116/65 09/05/23 05:18 Pulse Ox 96 09/05/23 05:18 O2 Del Method Room Air 09/05/23 05:18 BMI result Body Mass Index 37.8 VITAL SIGNS: Reviewed. GENERAL: Well developed, well nourished, in no acute distress. HEAD: Normocephalic/atraumatic EYES: PERRLA, EOMI EARS: Ext canals without abnormality, TMs non-bulging and non-erythematous NOSE: Nasal congestion OROPHARYNX: no oral lesions noted, posterior pharynx clear and non-erythematous without noted tonsillar enlargement/erythema/exudates NECK: Supple, no adenopathy LUNGS: Normal breath sounds. No adventitious sounds or accessory muscle use. SpO2<96> CARDIOVASCULAR: Regular rate and rhythm without noted murmurs ABDOMEN: Soft, non-tender, non-distended with bowel sounds. MUSCULOSKELETAL: No tenderness, deformities, or effusions noted on gross inspection. EXTREMITIES: No cyanosis, clubbing or edema. SKIN: Inspection of the skin reveals no rashes NEUROLOGIC: Alert and oriented x 4. Strength and sensation to light touch were grossly intact x 4. Medical Decision Making Medical Decision Making MDM Narrative: 43-year-old female with history and clinical presentation, DDX: Anxiety, Viral syndrome, bronchitis, pneumonia. I reviewed all investigations and hematologic indices reflect recent course of steroids with a leukocytosis and left shift but otherwise no anemia or thrombocytopenia. Patient is otherwise noted to be afebrile. Chemistry indices are grossly within normal limits. Viral testing is negative for influenza/RSV/COVID. Chest x-ray without infiltrate and otherwise my interpretation is in agreement with radiology's impression. My interpretation is that patient may be experiencing some side effects from recent course of steroids, I also instructed patient to stop using albuterol inhalers if she has no history of asthma as this will not improve cough symptoms. However, on the other hand, albuterol will increase anxiety/heart rate. Differential Diagnosis Differential Diagnoses: The differential diagnosis associated with the presentation includes Please see the discussion above Admission/Observation Consideration of admission/observation: Escalation of care including admission/observation considered Please see the discussion above Lab Data MDM Lab Attestation statement: I reviewed the patient's lab results. Please see the discussion above 09/04/23 23:02 09/04/23 23:02 Labs: Lab Results 09/04/23 Range/Units 23:02 WBC 11.3 H (4.8-10.8) X10*3/uL RBC 4.71 (4.20-5.50) X10*6/uL Hgb 12.6 (12.0-16.0) g/dl Hct 38.8 (37.0-47.0) % MCV 82.4 (80.0-98.0) fL MCH 26.8 L (27.0-33.0) pg MCHC 32.5 (31.0-35.0) g/dl RDW 15.4 (11.0-16.0) % Plt Count 368 (160-400) X10*3/uL MPV 10.4 (9.4-12.3) fL Immature Gran % (Auto) 0.4 (0.0-0.4) % Neut % (Auto) 73.2 H (45-73) % Lymph % (Auto) 15.4 L (20-40) % [place] % (Auto) 9.0 (2-11) % Eos % (Auto) 1.6 (0-4) % Baso % (Auto) 0.4 (0-2) % Lymph # (Auto) 1.7 (1.2-4.9) X10*3/uL [place] # (Auto) 1.0 (0.1-1.2) X10*3/uL Eos # (Auto) 0.2 (0.0-0.4) X10*3/uL Baso # (Auto) 0.0 (0.0-0.2) X10*3/uL Abs Immat Gran (auto) 0.04 H (0.00-0.03) X10*3/uL Absolute Neuts (auto) 8.3 (2.0-8.3) x10*3/uL Absolute Nucleated RBC 0.000 (0.0-0.012) X10*3/uL Nucleated RBC % (auto) 0.0 (0.0-0.2) /100WBC Sodium 141 (135-145) mmol/L Potassium 4.4 (3.3-5.1) mmol/L Chloride 104 (96-108) mmol/L Carbon Dioxide 29 (22-29) mmol/L Anion Gap 12 (12-20) BUN 12 (9-16) mg/dL Creatinine 0.71 (0.5-1.4) mg/dL Estim Creat Clear Calc 103.7 Estimated GFR > 60 Random Glucose 107 (60-115) mg/dL Calcium 9.6 D (8.4-10.2) mg/dL Total Bilirubin 0.3 (0.0-1.0) mg/dL AST 20 (5-31) U/L ALT 29 (0-31) U/L Alkaline Phosphatase 82 (39-117) U/L Total Protein 7.7 (6.5-8.0) g/dL Albumin 4.2 (3.5-5.0) g/dL Influenza Type A (PCR) NEGATIVE (Negative) Influenza Type B (PCR) NEGATIVE (Negative) RSV RNA Qual (PCR) NEGATIVE (Negative) SARS-CoV-2 RNA (RT-PCR) NEGATIVE (Negative) Discharge Plan Discharge Clinical Impression: Chronic coughing, Viral illness Patient Disposition: Home, Self-Care Instructions: Chronic Cough (ED), Viral Syndrome (ED) Additional Instructions: 1. Resume all home medications as prescribed. 2. Follow-up with primary care doctor in the next 1-2 days. Return to the ER for any acute worsening of your symptoms or new symptoms. Prescriptions: No Action escitalopram oxalate 20 mg tablet 20 mg PO DAILY Qty: 90 3RF albuterol sulfate 90 mcg/actuation HFA aerosol inhaler 2 puff inhalation Q6H PRN (Reason: shortness of breath or wheezing) Qty: 6.7 0RF albuterol sulfate 2.5 mg /3 mL (0.083 %) solution for nebulization 2.5 mg inhalation Q6H Qty: 75 0RF codeine-guaifenesin 10-100 mg/5 mL liquid 5 ml PO Q6H PRN (Reason: allergy symptoms) Qty: 120 0RF Referrals: Denise Cartagena MD [Primary Care Provider] - Interventions: ED Discharge Assessment Last Done: 09/05/23 05:19 Discharge Date/Time: 09/05/23 05:20
[2023-09-05 05:18] VITALS: BP 116/65; PULSE 80; RESP 17; O2SAT 96
== END 2023-09-05 05:20 | disposition home or self-care (01) ==
PROVIDERS: Emergency Provider Student in an Organized Health Care Education/Training Program; PCP Internal Medicine
DX: B34.9 Viral infection, unspecified (principal); R06.02 Shortness of breath; R11.2 Nausea with vomiting, unspecified; R42 Dizziness and giddiness; R05.9 Cough, unspecified; Z20.822 Contact with and (suspected) exposure to COVID-19; Z20.828 Contact with and (suspected) exposure to other viral communicable diseases; Z79.899 Other long term (current) drug therapy
CPT/HCPCS: 0241U; 71046; 80053; 85025; 99283; 99284

== ENCOUNTER 2023-11-27 14:01 | Outpatient (AMB) | payer BC, SELFPAY ==
--- NOTE | 2023-11-27 14:03 | A.OFFPC_ITS ---
Vital Signs 11/27/23 14:04 Height 5 ft 1 in Weight 229 lb BMI 43.3 BP 118/78 Blood Pressure Location Lt brachial Position Sitting Pulse 102 H Pulse Source Pulse Oximeter Pulse Oximetry (%) 98 Oxygen Delivery Method Room Air Intake Visit Reasons: on going cough Intake Note: Pt is here today for a sick visit. Pt c/o on going cough since August when she was sick. Allergies sulfamethoxazole [From Bactrim] Allergy (Unknown, Verified 11/27/23 14:07) Rash trimethoprim [From Bactrim] Allergy (Unknown, Verified 11/27/23 14:07) Rash Medication List - Last Reconciled 11/27/23 by Denise Cartagena MD albuterol sulfate 2.5 mg (3 mL) inhalation Q6H albuterol sulfate 90 mcg/actuation 2 puffs inhalation Q6H PRN benzonatate 100 mg PO TID escitalopram oxalate 20 mg PO DAILY fluticasone furoate-vilanterol 100-25 mcg/dose (Breo Ellipta) 1 inh inhalation DAILY omeprazole 40 mg PO DAILY Tobacco use date assessed: 11/27/23 Dental Screening Dental Screen Date: 11/27/23 Did you have a dental visit in the last 12 months?: Yes Did you have a dental problem in the last 6 months where you did not have access to dental care?: No Was dental information given to patient?: Patient has dentist HPI on going cough HPI Details Pt presents complaining of persistent dry cough since August, chronic postnasal drip and occasionally heartburn worse at night. Pt was treated for acute bronchitis with antibiotic, steroids, and albuterol in August. Pt has been taking Flonase and Zyrtec for 1 month. Patient had immunotherapy 5 years ago for seasonal allergy, mainly rhinitis. She denies any history of asthma. Patient denies shortness of breath palpitations wheezing pleurisy fever chills night sweats weight loss. [facility] Medical History HPV in female Overweight Gestational diabetes Anxiety and depression Surgical History History of esophagogastroduodenoscopy (EGD) [place] teeth extracted Family History Father Unknown family medical history Mother HTN (hypertension) Brother No problems noted. Sister No problems noted. Son No problems noted. Son No problems noted. 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 1. Little interest or pleasure in doing things: not at all 2. Feeling down, depressed, or hopeless: not at all 3. Trouble falling or staying asleep, or sleeping too much: not at all 4. Feeling tired or having little energy: several days 5. Poor appetite or overeating: not at all 6. Feeling bad about yourself - or that you are a failure or have let yourself or your family down: not at all 7. Trouble concentrating on things, such as reading the newspaper or watching television: not at all 8. Moving or speaking so slowly that other people could have noticed. Or the opposite - being so fidgety or restless that you have been moving around a lot more than usual: not at all 9. Thoughts that you would be better off or of hurting yourself in some way: not at all Total score: 1 Depression Screening Interpretation: Negative Depression Screening Done: Yes Source: Developed by Drs. Angelo Hoffmann, Marti Samaniego, Danilo Pirere and colleagues, with an educational inocencio from [employer]. Thrive Questionnaire Date Thrive assessed: 11/27/23 I am a: Patient What is your living situation today?: I have a steady place to live Within the past 12 months, did the food you bought not last and you didn't have the money to get more?: Never true Within the past 12 months, did you worry whether your food would run out before you got money to buy more?: Never true Do you have trouble paying for medicines?: No Do you have trouble getting transportation to medical appointments?: No Do you have trouble paying your heating and electricity bill?: No Do you have trouble taking care of your child, family member or friend?: No Do you have trouble with day-to-day activities such as bathing, preparing meals, shopping, managing finances, etc.?: No Are you currently unemployed and looking for a job?: No Are you interested in more education?: No Please select the resources that you would like help with: None THRIVE Score: 0 AUDIT C Alcohol Use Questionnaire (AUDIT-C) 1. How often do you have a drink containing alcohol?: Monthly or less 2. How many drinks containing alcohol do you have on a typical day when you are drinking?: 1 or 2 3. How often do you have six or more drinks on one occasion?: Never Total Score: 1 STEVE-7 AMB Questionnaire STEVE-7 Date STEVE - 7 assessed: 11/27/23 Feeling nervous, anxious, or on edge: 0 = Not at all Not being able to stop or control worryin = Not at all Worrying too much about different things: 0 = Not at all Trouble relaxin = Not at all Being so restless that it is hard to sit still: 0 = Not at all Becoming easily annoyed or irritable: 0 = Not at all Feeling afraid as if something awful might happen: 0 = Not at all Total STEVE-7 score (0-4 normal; 5-9 mild; 10-14 moderate; 15-21 severe): 0 Source: Developed by Drs. Angelo Hoffmann, Marti Samaniego, Danilo Pierre and colleagues, with an educational inocencio from [employer]. Review of Systems Const All systems reviewed & are unremarkable except as noted in HPI and below Reports no additional complaints Eyes Reports no additional complaints ENT Reports no additional complaints Card Reports no additional complaints Resp Reports no additional complaints GI Reports no additional complaints Reports no additional complaints Physical exam (Primary Care) Vital Signs: Last Vital Signs Pulse 102 H 11/27/23 14:04 BP 118/78 11/27/23 14:04 Pulse Ox 98 11/27/23 14:04 Oxygen Delivery Method Room Air 11/27/23 14:04 BMI result Body Mass Index 43.3 Tobacco/Smoking Status: Tobacco use Status Tobacco use date assessed 11/27/23 11/27/23 14:08 Patient Tobacco Use Status Never used Tobacco 11/27/23 14:08 e-Cigarette/Vaping Use Never Used 11/27/23 14:08 PHQ-9: PHQ-9 Score PHQ-9: Total score 1 11/27/23 14:09 Depression Screening Interpretation: Negative Thrive Assessment: Date of Thrive Assessment Date Thrive assessed 11/27/23 11/27/23 14:09 Const General: no acute distress HENMT Ears: hearing grossly normal bilaterally Face and sinus: Yes normal facial exam Mouth: Normal oral and palatal mucosa present Throat: Yes posterior oropharynx abnormal (erythema) and Yes postnasal drainage Eyes General: appearance normal, both eyes and all related structures Neck Neck: Yes no lymphadenopathy and Yes supple Resp Effort & Inspection: normal respiratory effort Auscultation: clear to auscultation bilaterally Cardio Rhythm: regular rhythm Heart sounds: S1 normal heart sound present and S2 normal heart sound present Assessment and Plan Assessment & Plan (1) Cough: Code(s): R05.9 - Cough, unspecified Plan: For persistent cough Breo 100/25 will be tried for 2 weeks. Patient was advised to try Claritin instead of Zyrtec and continue Flonase nasal spray. Omeprazole 40 mg q.h.s. will be tried. PFTs will be obtained and patient will follow-up in 3 weeks Orders: Orders PFT pulmonary function test Today Medications: New omeprazole 40 mg PO DAILY 90 caps 0RF fluticasone furoate-vilanterol 100-25 mcg/dose (Breo Ellipta) 1 inh inhalation DAILY 60 ea 0RF benzonatate 100 mg PO TID 30 caps 0RF Discontinued escitalopram oxalate Discontinued Reason: Doctor's Order 20 mg PO DAILY 90 tabs 3RF Coding Level of Care Code Est Pt Level 3 (57051) Diagnoses Cough R05.9
[2023-11-27 14:04] VITALS: BP 118/78; PULSE 102; O2SAT 98; BMI 43.3
== END 2023-11-27 15:01 | disposition home or self-care (01) ==
PROVIDERS: PCP Internal Medicine; Visit Provider Internal Medicine
DX: R05.9 Cough, unspecified (principal)
CPT/HCPCS: 99213

== ENCOUNTER 2024-08-04 13:32 | Outpatient (REF) | payer BC, SELFPAY ==
--- NOTE | ~2024-08-04 | MM_ITS ---
EXAMINATION: MM SCREENING DIGITAL BREAST TOMOSYNTHESIS, BILATERAL CLINICAL INFORMATION: Screening. Asymptomatic. COMPARISON: Mammography: Baseline. TECHNIQUE: Digital breast mammography with tomosynthesis is performed in both the craniocaudal and mediolateral oblique views along with computer-aided detection (CAD). FINDINGS: The breasts are heterogeneously dense, which may obscure small masses (ACR BI-RADS breast composition Category c). There are no significant masses, abnormal calcifications, or other abnormalities. MM/MM tomosynthesis screening BI IMPRESSION: No mammographic evidence of malignancy. ASSESSMENT: BI-RADS BI-RADS 1 - Negative RECOMMENDATION: Routine annual mammography screening. 1 year F/U This examination should not preclude the clinical evaluation of a suspicious palpable abnormality. This patient's information was entered into a reminder system with a target due date for their next mammogram. Electronically signed by: Amber Nino DO 08/12/2024 10:46 AM [place]
== END 2024-08-04 13:33 | disposition home or self-care (01) ==
LOC: HO.MAMMO 13:32
PROVIDERS: PCP Internal Medicine; Visit Provider Internal Medicine
DX: Z12.31 Encounter for screening mammogram for malignant neoplasm of breast (principal)
CPT/HCPCS: 77063; 77067

== ENCOUNTER → 2024-08-04 13:45 | Outpatient (BNV) | payer BC, SELFPAY | PROVIDERS: PCP Internal Medicine; Visit Provider Internal Medicine | DX: Z12.31 Encounter for screening mammogram for malignant neoplasm of breast (principal) | CPT/HCPCS: 77063; 77067 ==

== ENCOUNTER 2024-12-08 12:54 | Outpatient (AMB) | payer BC, SELFPAY ==
[2024-12-08 12:56] VITALS: BP 108/66; PULSE 60; TEMP 36.9; O2SAT 99; BMI 40.6
--- NOTE | 2024-12-08 12:56 | A.OFFPC_ITS ---
Vital Signs 12/08/24 12:56 Height 5 ft 1 in Weight 215 lb BMI 40.6 BP 108/66 Blood Pressure Location Lt brachial Position Sitting Pulse 60 Pulse Source Pulse Oximeter Temp 98.5 F Temp Source Oral Pulse Oximetry (%) 99 Oxygen Delivery Method Room Air Intake Visit Reasons: Annual PE Intake Note: Pt is here today for PE. Allergies sulfamethoxazole [From Bactrim] Allergy (Unknown, Verified 12/08/24 12:56) Rash trimethoprim [From Bactrim] Allergy (Unknown, Verified 12/08/24 12:56) Rash Medication List - Last Reconciled 12/08/24 by Denise Cartagena MD escitalopram oxalate (Lexapro) 20 mg PO DAILY fluticasone furoate-vilanterol 100-25 mcg/dose (Breo Ellipta) 1 inh inhalation DAILY omeprazole 40 mg PO DAILY Tobacco use date assessed: 12/08/24 Dental Screening Dental Screen Date: 12/08/24 Did you have a dental visit in the last 12 months?: Yes Did you have a dental problem in the last 6 months where you did not have access to dental care?: No Was dental information given to patient?: Patient has dentist HPI Annual PE HPI Details Pt presents for PE. PFSH Medical History HPV in female Overweight Gestational diabetes Anxiety and depression Surgical History History of esophagogastroduodenoscopy (EGD) [place] teeth extracted Family History Father Unknown family medical history Mother HTN (hypertension) Brother No problems noted. Sister No problems noted. Son No problems noted. Son No problems noted. 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 1. Little interest or pleasure in doing things: not at all 2. Feeling down, depressed, or hopeless: not at all 3. Trouble falling or staying asleep, or sleeping too much: several days 4. Feeling tired or having little energy: several days 5. Poor appetite or overeating: several days 6. Feeling bad about yourself - or that you are a failure or have let yourself or your family down: not at all 7. Trouble concentrating on things, such as reading the newspaper or watching t elevision: not at all 8. Moving or speaking so slowly that other people could have noticed. Or the opposite - being so fidgety or restless that you have been moving around a lot more than usual: not at all 9. Thoughts that you would be better off or of hurting yourself in some way: not at all Total score: 3 Depression Screening Interpretation: Negative Depression Screening Done: Yes 54750 - PHQ-9 Billing: Yes Source: Developed by Drs. Angelo Hoffmann, Marti Samaniego, Danilo Pierre and colleagues, with an educational inocencio from [employer]. Thrive Questionnaire Date Thrive assessed: 12/08/24 I am a: Patient What is your living situation today?: I have a steady place to live Within the past 12 months, did the food you bought not last and you didn't have the money to get more?: Never true Within the past 12 months, did you worry whether your food would run out before you got money to buy more?: Never true Do you have trouble paying for medicines?: No Do you have trouble getting transportation to medical appointments?: No Do you have trouble paying your heating and electricity bill?: No Do you have trouble taking care of your child, family member or friend?: No Do you have trouble with day-to-day activities such as bathing, preparing meals, shopping, managing finances, etc.?: No Are you currently unemployed and looking for a job?: No Are you interested in more education?: No Please select the resources that you would like help with: None Currently or been in a relationship where the following occur: No concerns reported THRIVE Score: 0 AUDIT C Alcohol Use Questionnaire (AUDIT-C) 1. How often do you have a drink containing alcohol?: Monthly or less 2. How many drinks containing alcohol do you have on a typical day when you are drinking?: 1 or 2 3. How often do you have six or more drinks on one occasion?: Less than monthly Total Score: 2 STEVE-7 AMB Questionnaire STEVE-7 Date STEVE - 7 assessed: 12/08/24 Feeling nervous, anxious, or on edge: 1 = Several days Not being able to stop or control worryin = Not at all Worrying too much about different things: 0 = Not at all Trouble relaxin = Not at all Being so restless that it is hard to sit still: 0 = Not at all Becoming easily annoyed or irritable: 1 = Several days Feeling afraid as if something awful might happen: 0 = Not at all Total STEVE-7 score (0-4 normal; 5-9 mild; 10-14 moderate; 15-21 severe): 2 Source: Developed by Drs. Angelo Hoffmann, Marti Samaniego, Danilo Pierre and colleagues, with an educational inocencio from [employer]. STEVE-7 Assessment Billing STEVE-7 Assessment Tool: STEVE-7 Assessment 44438 Review of Systems Const All systems reviewed & are unremarkable except as noted in HPI and below Eyes Reports no additional complaints ENT Reports no additional complaints Card Reports no additional complaints Resp Reports no additional complaints GI Reports no additional complaints Reports no additional complaints Physical exam (Primary Care) Vital Signs: Last Vital Signs Temp 98.5 F 12/08/24 12:56 Pulse 60 12/08/24 12:56 BP 108/66 12/08/24 12:56 Pulse Ox 99 12/08/24 12:56 Oxygen Delivery Method Room Air 12/08/24 12:56 BMI result Body Mass Index 40.6 Tobacco/Smoking Status: Tobacco use Status Tobacco use date assessed 12/08/24 12/08/24 12:57 Patient Tobacco Use Status Never used Tobacco 12/08/24 12:57 e-Cigarette/Vaping Use Never Used 12/08/24 12:56 PHQ-9: PHQ-9 Score PHQ-9: Total score 3 12/08/24 12:57 Depression Screening Interpretation: Negative Thrive Assessment: Date of Thrive Assessment Date Thrive assessed 12/08/24 12/08/24 12:57 Currently or been in a relationship where the following occur: No concerns reported Const General: no acute distress HENMT Head: Yes normal to inspection Ears: hearing grossly normal bilaterally General nose exam: Normal external nose present Face and sinus: Yes normal facial exam Throat: Yes posterior oropharynx normal Eyes General: appearance normal, both eyes and all related structures Neck Neck: Yes no lymphadenopathy and Yes supple Resp Effort & Inspection: normal respiratory effort Auscultation: clear to auscultation bilaterally Cardio Rhythm: regular rhythm Heart sounds: S1 normal heart sound present and S2 normal heart sound present GI Inspection: Yes normal to inspection Palpation (GI): Soft to palpation Percussion: Yes normal to percussion Auscultation: normal bowel sounds Coding Level of Care Code Est Pt Prev Care 40-64y(83622) Diagnoses Anxiety and depression F41.9; F32.9 Annual physical exam Z00.00 Sleep apnea G47.30 Overweight E66.3 Additional Codes STEVE-7 Assessment Billing - STEVE-7 Assessment Tool: STEVE-7 Assessment 17677 ([id number]) PHQ-9 - 71474 - PHQ-9 Billing: Yes ([id number]) Assessment & Plan Assessment & Plan (1) Anxiety and depression: Code(s): F41.9 - Anxiety disorder, unspecified; F32.9 - Major depressive disorder, single episode, unspecified Category: Medical Plan: Continue Lexapro (2) Annual physical exam: Code(s): Z00.00 - Encounter for general adult medical examination without abnormal findings Category: Medical Plan: Well-balanced diet regular physical activity discussed with the patient. Patient had negative Pap smear in 2022, she is up-to-date with mammogram and corky l be referred to GI for colonoscopy (3) Sleep apnea: Comment: very mild 2022, sleeping in lateral position, and weight loss recommended Code(s): G47.30 - Sleep apnea, unspecified Category: Medical Plan: Decrease caloric intake increasing physical activity and weight loss discussed with the patient (4) Overweight: Code(s): E66.3 - Overweight Category: Medical Plan: She has been decreasing caloric intake increasing physical activity for over 6 months and has not been able to lose weight. She took Wegovy for 2 months last year and lost 20 lb but her insurance did not continue to cover the medication. Patient will check formulary for GLP 1 agonist with her insurance and is interested in restarting the medication. Orders: Orders Lipid Panel Today F32.9 - Major depressive disorder, single episode, unspecified, F41.9 - Anxiety disorder, unspecified, G47.30 - Sleep apnea, unspecified, Z00.00 - Encounter for general adult medical examination without abnormal findings Vitamin D 25-OH Total Today F32.9 - Major depressive disorder, single episode, unspecified, F41.9 - Anxiety disorder, unspecified, G47.30 - Sleep apnea, unspecified, Z00.00 - Encounter for general adult medical examination without abnormal findings UA w Microscopic Today F32.9 - Major depressive disorder, single episode, unspecified, F41.9 - Anxiety disorder, unspecified, G47.30 - Sleep apnea, unspecified, Z00.00 - Encounter for general adult medical examination without abnormal findings Comprehensive [place]. Panel Fast Today F32.9 - Major depressive disorder, single episode, unspecified, F41.9 - Anxiety disorder, unspecified, G47.30 - Sleep apnea, unspecified, Z00.00 - Encounter for general adult medical examination without abnormal findings Complete Blood Count Auto Diff Today F32.9 - Major depressive disorder, single episode, unspecified, F41.9 - Anxiety disorder, unspecified, G47.30 - Sleep apnea, unspecified, Z00.00 - Encounter for general adult medical examination without abnormal findings TSH reflex Free T4 Today F32.9 - Major depressive disorder, single episode, unspecified, F41.9 - Anxiety disorder, unspecified, G47.30 - Sleep apnea, unspecified, Z00.00 - Encounter for general adult medical examination without abnormal findings IRON PROFILE Today Z00.00 - Encounter for general adult medical examination without abnormal findings Referrals Gastroenterology Referral Z00.00 - Encounter for general adult medical examination without abnormal findings Medications: Refilled escitalopram oxalate (Lexapro) 20 mg PO DAILY 90 tabs 3RF Discontinued fluticasone furoate-vilanterol 100-25 mcg/dose (Breo Ellipta) Discontinued Reason: Doctor's Order 1 inh inhalation DAILY 60 ea 0RF
--- OUTSIDE RECORDS SUMMARY | 2024-12-08 15:56 | XMS_ITS | Data Portability ---
Author Organization [facility] [address] Address [address] [place] [address] Care Team Providers Care Gravure Press Set Up Operator Name Role Phone KRISH GILESANNA Primary Care Provider Assessment No assessment recorded. Plan of Treatment Reminders Order Date Submit Date Provider Last Modified By Organization Details Last Modified Time Details Appointments None recorded. Lab None recorded. Referral None recorded. Procedures None recorded. Surgeries None recorded. Imaging None recorded. Medication Orders amoxicillin 875 mg-potassiu m clavulanate 125 mg tablet 2022 023 [email or web address] [id number], [address], [place], [address], 3 13:24:29 Patient TargetsNo targets recorded. Patient Instructions Encounter Date Encounter Id Patient Instructions Last Modified By Organization Details Last Modified Time 04/25/2023 [id number] Acute Sinusitis: Care Instructions [place] [id number] Not available 04/25/2023 13:21:18 Reason for Referral None Reported. Problems Name Problem SNOMED Code Status Onset Date Resolution Date Notes Provider Name and Address Organization Details Recorded Time Anxiety 63190783 Active 2022 Lakeshia [place] null, PA - [facility] 3 12:38:48 Environmental allergy 764701520 Active 2022 Lakeshia [place] null, PA - [facility] 3 12:38:56 Sleep apnea 99222289 Active 2022 Lakeshia [place] null, PA - [facility] 3 12:39:01 Problem Notes None recorded. Medical Equipment None Reported. Allergies Allergen ID Allergen Name Allergen Category Reaction Reaction Severity Criticality Documentation Date Start Date Code Code System Note Provider Name and Address Organization Details Recorded Time 535719 Bactrim medicatio n rash Not available Not available 04/25/2023 93457 9 [facility]Norm [facility] 3 12:38:21 Medications Name Sig Start Date Stop Date Status Note LastModified by Organization Details LastModified Time azithromyci n 250 mg tablet TAKE 2 TABLETS BY MOUTH TODAY, THEN TAKE 1 TABLET DAILY FOR 4 DAYS 04/25 completed Not Available Not Available Not Available amoxicillin 875 mg-potassiu m clavulanate 125 mg tablet Take 1 tablet every 12 hours by oral route for 10 days. 2022 active Not Available Not Available Not Avai lable escitalopra m 20 mg tablet TAKE 1 TABLET BY MOUTH EVERY DAY active Not Available Not Available No t Available Flonase Allergy Relief 50 mcg/actuati on nasal spray,suspe nsion [place] 1 spray every day by intranasa l route. active Not Available Not Available No t Available Vitals Date Recorded Body height Body mass index (BMI) Body weight Body temperature Respiratory rate Pain severity - 0-10 verbal numeric rating [Score] - Reported Oxygen saturation Oxygen saturation in Arterial blood by Pulse oximetry Heart rate Systolic blood pressure Diastolic blood pressure Provider Name and Address Organization Details Last Updated DateTime 3 157.48 cm 36.6 kg/m2 53418.4 7 g 97.9 [degF] 20 /min 7 96 % 96 % 86 /min 95 mm[Hg] 65 mm[Hg] Lakeshia DURAN - [facility] 3 12:41:32 Social History Question Answer Notes LastModified by Organizat ion Details LastModified Time Tobacco Smoking Status Never Smoker Lakeshia vargas [place] - [facility] 04/25/2023 12:39:13 What Is Your Level Of Alcohol Consumption? None Information not available 04/25/2023 Have You Had Direct Contact, Or Contact During Intimacy, With Monkeypox Rash, Scabs, Or Body Fluids From A Person With Monkeypox? No Information not available 04/25/2023 Do You Use Any Illicit Or Recreational Drugs? No Information not available 04/25/2023 Have You Recently Traveled Abroad? No Information not available 04/25/2023 Do You Or Have You Ever Used Any Other Forms Of Tobacco Or Nicotine? No Information not available 04/25/2023 Sex: Unknown Functional Status None recorded. Mental Status None recorded. Family History Relationship Description Onset Age of this Age Resolved Age Notes LastModified by Organization Details LastModified Time Father No current problems or disability Not available 04/25 12:39:03 Mother No current problems or disability Not available 04/25 12:39:03 Medical History No medical history recorded. Gynecological History Statement/Question Response Date of LMP 04/08/2023 Is there any chance of ? No LMP Approximate Obstetrics History GPAL:G 0 P 0 0 0 0 Immunizations Vaccine Type Date Status Note Provider Nam e and Address Organization Details Recorded Time Influenza, split virus, quadrivalent, preservative 8 completed Lakeshia [place] null, PA - [facility] 04/25/2023 12:37:57 Influenza, split virus, quadrivalent, preservative 7 completed Lakeshia Zion null, PA - [facility] 04/25/2023 12:37:57 Influenza, split virus, quadrivalent, preservative 6 completed Lakeshia Zion null, PA - [facility] 04/25/2023 12:37:57 Influenza, MDCK, quadrivalent, PF 0 completed Lakeshia [place] null, PA - [facility] 04/25/2023 12:37:57 COVID-19, mRNA, LNP-S, PF, 30 mcg/0.3 mL dose 1 completed Lakeshia [place] null, PA - [facility] 04/25/2023 12:37:57 COVID-19, mRNA, LNP-S, PF, 30 mcg/0.3 mL dose 1 completed Lakeshia [place] null, PA - [facility] 04/25/2023 12:37:57 COVID-19, mRNA, LNP-S, PF, 30 mcg/0.3 mL dose 1 completed [facility] Alegre [facility] 04/25/2023 12:37:57 Influenza, split virus, quadrivalent, PF 0 completed [facility] 04/25/2023 12:37:57 Past Encounters Encounter ID Performer Location Encounter Start Date Encounter Closed Date Diagnosis/Indication Diagnosis SNOMED-CT Code Diagnosis ICD10 Code Diagnosis Note [id number] Jose browner [facility] [place] [address] 11/26/2017 11:50:50 11/26/2017 13:03:22 [id number] Jose Schmittmt hollier [address] [place] [address] 08/02/2019 12:25:17 08/02/2019 12:39:01 [id number] Jose Schmittmt [address] [address] 12/29/2017 08:30:32 12/29/2017 08:54:29 [id number] Jose Schmittmt hollier [address] [place] [address] 02/20/2018 09:20:38 02/20/2018 09:58:24 [id number] Enio Vanessa MD [address] [place] [address] 04/25/2023 12:24:33 04/25/2023 13:22:20 Acute sinusitis 38556793 J01.90 - Use the medication s prescribed .- Decongesta nts if tolerated. - Recommend recheck if fever develops or no improvemen t in 5-7 days.- Use saline nasal spray or neti-pot flushes once to twice a day to loosen mucus in sinuses.-. Use a cool mist humidifier in the room that you sleep to add moisture to the air, which should soothe the airways and help loosen any mucus that may be present.-C all 911 or proceed to nearest Emergency Department if you develop shortness of breath, chest pain, severe headache or other symptoms that concern you. Health Concerns Section Related Observation LastModified by Organization Detai ls LastModified Time None Recorded Concern Status LastModified by Organization Details LastModified Time None Recorded Advance Directives Directive None Recorded Payers Encounter Date Sequence Insurance Name Policy Number Policy Aponte Covered Member ID Aponte Member ID Guarantor Name 11/26/2017 1 [place] [id number] Munira Rubalcava [id number] Munira Rubalcava 12/29/2017 1 [place] [id number] Munira Rubalcava [id number] Munira Rubalcava 02/20/2018 1 [place] [id number] Munira Rubalcava [id number] Munira Rubalcava 08/02/2019 1 [place] [id number] Munira Rubalcava [id number] Munira Rubalcava 04/25/2023 1 [place] [id number] Adi Rubalcava [id number] FRANCI Niey Notes Date Note Type Note Provider Name and Address Organization Details Recorded Time 04/25/2023 text/html Sinus Complaints UCReported bypatient.Locatio n:pain behind the eyes;sinus pain;facial pain;sinus pressure Associated Symptoms:nasal discharge from nostrils;nasal passage blockage Onset/Timing:wors e in am; worse in pm Quality:worsening Duration:long standing Severity:moderate Context:no recent upper respiratory infection; no recent sick contacts; not worse with seasonal allergen exposure Enio Vanessa MD [address] [place], [place] [address], [address], [place] - [facility] 04/25/2023 13:24:50 OBGyn Episode No OBEpisode recorded.
== END 2024-12-08 13:35 | disposition home or self-care (01) ==
PROVIDERS: PCP Internal Medicine; Visit Provider Internal Medicine
DX: F41.9 Anxiety disorder, unspecified (principal); F32.9 Major depressive disorder, single episode, unspecified; Z00.00 Encounter for general adult medical examination without abnormal findings; G47.30 Sleep apnea, unspecified; E66.3 Overweight

== ENCOUNTER → 2024-12-08 12:54 | Outpatient (BNVA) | payer BC, SELFPAY | PROVIDERS: PCP Internal Medicine; Visit Provider Internal Medicine | DX: Z00.00 Encounter for general adult medical examination without abnormal findings (principal); F41.9 Anxiety disorder, unspecified; F32.9 Major depressive disorder, single episode, unspecified; G47.30 Sleep apnea, unspecified; E66.3 Overweight; Z68.41 Body mass index [BMI] 40.0-44.9, adult; Z79.899 Other long term (current) drug therapy | CPT/HCPCS: 96127 ==

== ENCOUNTER 2025-04-16 13:08 | Outpatient (REF) | payer BC, SELFPAY ==
--- OUTSIDE RECORDS SUMMARY | 2025-04-16 13:12 | XMS_ITS | Patient Health Record ---
Author Organization [facility] Address [address] [place] [address] Care Team Providers Care Settlement Processor Name Role Phone Denise Cartagena MD Primary Care Provider Cecil Jha Jr, Masood Vicente Reason For Referral No Information Encounters Encounter Location Date Provider Diagnosis [facility] [address] [place] [address] 03/30/2025 Masood Jha Jr Plan Of Treatment No Information Insurance Providers Payer Name Payer Address Payer Phone Subscriber Number Group Number Insured Name Patient Relationship to Insured Coverage Start Date Coverage End Date [facility] [address] [place] [address] [id number] ROBBIE PASCAL Self - patient is the insured
--- OUTSIDE RECORDS SUMMARY | 2025-04-16 13:12 | XMS_ITS | Data Portability ---
Author Organization [facility] [address] Address [address] [place] [address] Care Team Providers Care Environmental Sampler Name Role Phone JESSEE GILES Primary Care Provider [phone] Assessment No assessment recorded. Plan of Treatment Reminders Order Date Submit Date Provider Last Modified By Organization Details Last Modified Time Details Appointments None recorded. Lab None recorded. Referral None recorded. Procedures None recorded. Surgeries None recorded. Imaging None recorded. Medication Orders amoxicillin 875 mg-potassiu m clavulanate 125 mg tablet 2022 023 [email or web address] [id number], [address] [facility], [place], [address], 13:24:29 Patient TargetsNo targets recorded. Patient Instructions Encounter Date Encounter Id Patient Instructions Last Modified By Organization Details Last Modified Time 04/25/2023 [id number] Acute Sinusitis: Care Instructions [email or web address] Not available 04/25/2023 13:21:18 Reason for Referral None Reported. Problems Name Problem SNOMED Code Status Onset Date Resolution Date Notes Provider Name and Address Organization Details Recorded Time Anxiety 14738198 Active 2022 Lakeshia Zion null, PA - [facility] 3 12:38:48 Environmental allergy 963779454 Active 2022 Lakeshia Zion null, PA - [facility] 3 12:38:56 Sleep apnea 40598238 Active 2022 Lakeshia [place] null, PA - [facility] 3 12:39:01 Problem Notes None recorded. Medical Equipment None Reported. Allergies Allergen ID Allergen Name Allergen Category Reaction Reaction Severity Criticality Documentation Date Start Date Code Code System Note Provider Name and Address Organization Details Recorded Time 308825 Bactrim medicatio n rash Not available Not available 04/25/2023 63519 9 RxNorm Lakeshia vargas PA - [facility] 12:38:21 Medications Name Sig Start Date Stop [...] Relief 50 mcg/actuati on nasal spray,suspe nsion [place] 1 spray every day by intranasa l route. active Not Available Not Available No t Available Vitals Date Recorded Body height Body mass index (BMI) Body weight Body temperature Respiratory rate Oxygen saturation Oxygen saturation in Arterial blood by Pulse oximetry Heart rate Systolic And Diastolic Provider Name and Address Organization Details Last Updated DateTime 3 157.48 cm 36.6 kg/m2 93514.4 7 g 97.9 [degF] 20 /min 96 % 96 % 86 /min 95/65 mm[Hg] Lakeshia Donovan PA - [facility] 3 12:41:32 Social History Question Answer Notes LastModified by [employer] Details LastModified Time Tobacco Smoking Status Never Smoker Lakeshia vargas PA - [facility] 04/25/2023 12:39:13 Have You Had Direct Contact, Or Contact During Intimacy, With Monkeypox Rash, Scabs, Or Body Fluids From A Person With Monkeypox? No Information not available 04/25/2023 Have You Recently Traveled Abroad? No Information not available 04/25/2023 Sex: Unknown Functional Status Question Answer Note LastModified by [employer] Details LastModified Time Do you use any illicit or recreational drugs? No Information not available 04/25/2023 Do you or have you ever used any other forms of tobacco or nicotine? No Information not available 04/25/2023 What is your level of alcohol consumption? None Information not available 04/25/2023 Mental Status None recorded. Family History Relationship [...] split virus, quadrivalent, preservative 8 completed Lakeshia [place] null, PA - [facility] 04/25/2023 12:37:57 Influenza, split virus, quadrivalent, preservative 7 completed Lakeshia Zion null, PA - [facility] 04/25/2023 12:37:57 Influenza, split virus, quadrivalent, preservative 6 completed Lakeshia [place] null, PA - [facility] 04/25/2023 12:37:57 Influenza, MDCK, quadrivalent, PF 0 completed Lakeshia [place] null, [place] - [facility] [...] Influenza, split virus, quadrivalent, PF 0 completed Lakeshiamilla vargas PA - [facility] 04/25/2023 12:37:57 Past Encounters Encounter ID Performer Location Encounter Start Date Encounter Closed Date Diagnosis/Indication Diagnosis SNOMED-CT Code Diagnosis ICD10 Code Diagnosis Note [id number] [facility] [address] [place] [address] 11/26/2017 11:50:50 11/26/2017 13:03:22 [id number] [address] [address] [place] [address] 08/02/2019 12:25:17 08/02/2019 12:39:01 [id number] [address] [address] [place] [address] 12/29/2017 08:30:32 12/29/2017 08:54:29 [id number] [address] [address] [place] [address] 02/20/2018 09:20:38 02/20/2018 09:58:24 [id number] Enio Vanessa [place] [address] [place] [address] 04/25/2023 12:24:33 04/25/2023 13:22:20 Acute sinusitis 22573734 J01.90 - Use the medication s prescribed [...] Recorded Advance Directives Directive None Recorded Payers Insurance Date Sequence Insurance Name Policy Number Policy Aponte Covered Member ID Aponte Member ID Guarantor Name 04/25/2023 1 [employer] (PPO) [id number] Munira Rubaclava [id number] Munira Rubalcava 04/25/2023 1 [employer]Y (PPO) [id number] Adi Rubalcava [id number] Munira Rubalcava Notes Date Note Type Note Provider Name and Address Organization Details Recorded Time 04/25/2023 text/html Sinus Complaints UCReported bypatient.Locatio n:pain behind the eyes;sinus pain;facial pain;sinus pressure Associated Symptoms:nasal discharge from nostrils;nasal passage blockage Onset/Timing:wors e in am; worse in pm Quality:worsening Duration:long standing Severity:moderate Context:no recent upper respiratory infection; no recent sick contacts; not worse with seasonal allergen exposure Enio Vanessa MD [address] [place], [place] [address], [address], [place] - [facility] 04/25/2023 13:24:50 OBGyn Episode No OBEpisode recorded.
[2025-04-16 13:23] LABS: MANUAL DIFF FLAG NO
[2025-04-16 14:16] LABS: Hematocrit 37.2 % (37.0-47.0); Hemoglobin 12.0 g/dl (12.0-16.0); Imm Gran Abs Auto 0.04 X10*3/uL (0.00-0.03); Imm Gran Pct Auto 0.4 % (0.0-0.4); Lymphocytes Absolute Auto 1.9 X10*3/uL (1.2-4.9); Mean Corpuscular HGB Conc 32.3 g/dl (31.0-35.0); Mean Corpuscular Hemoglobin 25.3 pg (27.0-33.0); Mean Corpuscular Volume 78.3 fL (80.0-98.0); NRBC Abs Auto 0.000 X10*3/uL (0.0-0.012); NRBC Pct Auto 0.0 /100WBC (0.0-0.2); Platelet Count 308 X10*3/uL (160-400); Red Blood Count 4.75 X10*6/uL (4.20-5.50); White Blood Count 9.1 X10*3/uL (4.8-10.8)
[2025-04-16 14:55] LABS: Alanine Aminotransferase 13 U/L (0-31); Albumin Level 4.2 g/dL (3.5-5.0); Alkaline Phosphatase 84 U/L (39-117); Anion Gap 10 (12-20); Aspartate Amino Transferase 19 U/L (5-31); Blood Urea Nitrogen 11 mg/dL (9-16); Calcium 8.7 mg/dL (8.4-10.2); Carbon Dioxide 26 mmol/L (22-29); Chloride 103 mmol/L (96-108); Cholesterol 189 mg/dL (<200); Estimated Glomerular Filt Rate > 60; HDL Cholesterol 58 mg/dL (>40); Iron 39 mcg/dL (30-160); Percent Iron Saturation 12 % (15-50); Potassium 4.2 mmol/L (3.3-5.1); Sodium 135 mmol/L (135-145); Total Iron Binding Capacity 326 mcg/dL (228-428); Total Protein 7.2 g/dL (6.5-8.0); Triglycerides 105 mg/dL (<150); Unsaturated Iron Binding 287 ug/dL
== END 2025-04-16 13:09 | disposition home or self-care (01) ==
LOC: HO.LAB 13:08
PROVIDERS: PCP Internal Medicine; Visit Provider Internal Medicine
DX: Z00.00 Encounter for general adult medical examination without abnormal findings (principal); F41.9 Anxiety disorder, unspecified; F32.9 Major depressive disorder, single episode, unspecified; G47.30 Sleep apnea, unspecified
CPT/HCPCS: 36415; 80053; 80061; 82306; 83540; 84443; 85025

== ENCOUNTER 2025-04-22 13:51 | Outpatient (REF) | payer BC, SELFPAY ==
[2025-04-22 14:33] LABS: Appearance Urine Clear; Glucose Urine UA Negative (Negative); PH 7.5 (5.0-9.0); Specific Gravity - Urine 1.025 (1.005-1.025); UMIC TRIGGER UA YES
--- OUTSIDE RECORDS SUMMARY | 2025-04-22 14:35 | XMS_ITS | Patient Health Record ---
Author Organization [facility] Address [address] [place] [address] Care Team Providers Care Branch Service Leader Name Role Phone Denise Cartagena MD Primary Care Provider Cecil Jha Jr, Masood Vicente Reason For Referral No Information Encounters Encounter Location Date Provider Diagnosis [facility] [address] [place] [address] 03/30/2025 Masood Jha Jr Plan Of Treatment No Information Insurance Providers Payer Name Payer Address Payer Phone Subscriber Number Group Number Insured Name Patient Relationship to Insured Coverage Start Date Coverage End Date [facility] [address] [place] [address] [id number] ROBBIE PASCAL Self - patient is the insured
--- OUTSIDE RECORDS SUMMARY | 2025-04-22 14:35 | XMS_ITS | Data Portability ---
Author Organization [facility], [address] Address [address] [place] [address] Care Team Providers Care Funeral Director'S Assistant Name Role Phone JESSEE GILES Primary Care Provider [phone] Assessment No assessment recorded. Plan of Treatment Reminders Order Date Submit Date Provider Last Modified By Organization Details Last Modified Time Details Appointments None recorded. Lab None recorded. Referral None recorded. Procedures None recorded. Surgeries None recorded. Imaging None recorded. Medication Orders amoxicillin 875 mg-potassiu m clavulanate 125 mg tablet 2022 023 [email or web address] [id number], [address] [facility], [place], [address], 13:24:29 Patient TargetsNo targets recorded. Patient Instructions Encounter Date Encounter Id Patient Instructions Last Modified By Organization Details Last Modified Time 04/25/2023 [id number] Acute Sinusitis: Care Instructions [email or web address] Not available 04/25/2023 13:21:18 Reason for Referral None Reported. Problems Name Problem SNOMED Code Status Onset Date Resolution Date Notes Provider Name and Address Organization Details Recorded Time Anxiety 52255490 Active 2022 Lakeshia Zion null, PA - [facility] 3 12:38:48 Environmental allergy 314886055 Active 2022 Lakeshia Zion null, PA - [facility] 3 12:38:56 Sleep apnea 91118432 Active 2022 Lakeshia [place] null, PA - [facility] 12:39:01 Problem Notes None recorded. Medical Equipment None Reported. Allergies Allergen ID Allergen Name Allergen Category Reaction Reaction Severity Criticality Documentation Date Start Date Code Code System Note Provider Name and Address Organization Details Recorded Time 253619 Bactrim medicatio n rash Not available Not available 04/25/2023 63783 9 RxNorm [facility]ia vargas [facility] - [facility] [...] Relief 50 mcg/actuati on nasal spray,suspe nsion [place] 1 spray every day by intranasa l route. active Not Available Not Available No t Available Vitals Date Recorded Body height Body mass index (BMI) Body weight Body temperature Respiratory rate Oxygen saturation Oxygen saturation in Arterial blood by Pulse oximetry Heart rate Systolic And Diastolic Provider Name and Address Organization Details Last Updated DateTime 3 157.48 cm 36.6 kg/m2 74788.4 7 g 97.9 [degF] 20 /min 96 % 96 % 86 /min 95/65 mm[Hg] Lakeshia Donovan PA - [facility] 3 12:41:32 Social History Question Answer Notes LastModified by [employer] Details LastModified Time Tobacco Smoking Status Never Smoker Lakeshia vargas PA - [facility] 04/25/2023 12:39:13 Have You Had Direct Contact, Or Contact During Intimacy, With Monkeypox Rash, Scabs, Or Body Fluids From A Person With Monkeypox? No Information not available 04/25/2023 Have You Recently Traveled Abroad? No Information not available 04/25/2023 Sex: Unknown Functional Status Question Answer Note LastModified by [employer] Details LastModified Time Do you use any [...] split virus, quadrivalent, preservative 8 completed Lakeshia [place] null, PA - [facility] 04/25/2023 12:37:57 [...] SNOMED-CT Code Diagnosis ICD10 Code Diagnosis Note [id number] [facility] [address] [place] [address] 11/26/2017 11:50:50 11/26/2017 13:03:22 [id number] [address] [place] [address] 08/02/2019 12:25:17 08/02/2019 12:39:01 [id number] [facility] [facility] [place] [address] 12/29/2017 08:30:32 12/29/2017 08:54:29 [id number] [facility] [facility] [place] [address] 02/20/2018 09:20:38 02/20/2018 09:58:24 [id number] Enio Vanessa MD [address] [place] [address] 04/25/2023 12:24:33 04/25/2023 13:22:20 Acute sinusitis 53494795 J01.90 - Use the medication s prescribed [...] ID Guarantor Name 04/25/2023 1 DESTINY (PPO) [id number] Munira Rubalcava [id number] Munira Rubalcava 04/25/2023 1 DESTINY (PPO) [id number] Adi Rubalcava [id number] Munira Rubalcava Notes Date Note Type Note [...] with seasonal allergen exposure Enio Vanessa MD [address] [place], [place] [address], [address], [place] - [facility] 04/25/2023 13:24:50 OBGyn Episode No OBEpisode recorded.
== END 2025-04-22 13:52 | disposition home or self-care (01) ==
LOC: HO.LAB 13:51
PROVIDERS: PCP Internal Medicine; Visit Provider Internal Medicine
DX: Z00.00 Encounter for general adult medical examination without abnormal findings (principal); F41.9 Anxiety disorder, unspecified; F32.9 Major depressive disorder, single episode, unspecified; G47.30 Sleep apnea, unspecified
CPT/HCPCS: 81001

== ENCOUNTER 2025-09-23 12:31 | Outpatient (REF) | payer BC, SELFPAY | END 2025-09-23 12:32 | disposition home or self-care (01) | LOC: HO.MAMMO 12:31 | PROVIDERS: PCP Internal Medicine; Visit Provider Internal Medicine | DX: Z12.31 Encounter for screening mammogram for malignant neoplasm of breast (principal) | CPT/HCPCS: 77063; 77067 ==

== ENCOUNTER → 2025-09-23 12:45 | Outpatient (BNV) | payer BC, SELFPAY | PROVIDERS: PCP Internal Medicine; Visit Provider Radiology Body Imaging | DX: Z12.31 Encounter for screening mammogram for malignant neoplasm of breast (principal) | CPT/HCPCS: 77063; 77067 ==